=== PATIENT | female | born 1980 | race Asian ===

== ENCOUNTER 2019-09-09 15:04 | Emergency (ER) | payer OTHER ==
[~2019-09-09] VITALS: Ht 157.5 cm; Wt 90.7 kg
[2019-09-09 15:09] VITALS: TEMP 98.1
[2019-09-09 16:04] LABS: PLATELET COUNT 431 K/uL (152-353)
[2019-09-09 16:14] LABS: POTASSIUM 3.3 mmol/L (3.6-5.2); SODIUM 139 mmol/L (136-145)
[2019-09-09 17:01] LABS: PARTIAL THROMBOPLASTIN TIME 22.4 SECONDS (24.5-33.6)
[2019-09-09 18:00] VITALS: BP 135/84
== END 2019-09-09 18:47 | disposition home or self-care (01) ==
LOC: ED 15:04
PROVIDERS: Family Medicine
DX: D64.89 Other specified anemias (principal); E87.6 Hypokalemia; J30.89 Other allergic rhinitis
CPT/HCPCS: 80053; 81000; 82550; 84484; 85027; 85610; 85730; 93005; 99283